=== PATIENT | female | born 1980 | race Caucasian/White ===

== ENCOUNTER 2018-12-06 20:40 | Emergency (ER) | payer SELFPAY ==
[~2018-12-06] VITALS: Ht 152.4 cm; Wt 160.0 kg
[2018-12-06] MEDS ORDERED: SOD CHLORIDE 0.9% 1,000 ML IV STA (20:41)
[2018-12-06 20:43] VITALS: Ht 152.4 cm; Wt 160.0 kg
--- NOTE | 2018-12-06 21:09 | ERD ---
ER Documentation Chief Complaint Chief Complaint SVT with dizziness HPI 38-year-old female with prior history of SVT status post the use of adenosine who presents to the emergency room for SVT. The patient states that just prior to arrival she started to feel her heart racing went to a local [employer]. The patient was noted to have a heart rate in the 200 and was given adenosine 6 mg IV with conversion to sinus rhythm. Patient states that she did have palpitations, chest discomfort and dizziness with the symptoms but symptoms are abated status post conversion. She denies any drugs or alcohol, no falls or injuries, no exertional chest pain or pleuritic pain. ROS All systems reviewed and are negative except as per history of present illness. Allergies Allergies: Coded Allergies: No Known Allergy (Unverified , 12/06/18) PMhx/Soc Medical and Surgical Hx: pt denies Medical Hx, pt denies Surgical Hx Hx Alcohol Use: No Hx Substance Use: No Hx Tobacco Use: No Smoking Status: Never smoker FmHx Family History: No diabetes Physical Exam Vitals Vital Signs Date Temp Pulse Resp B/P (MAP) Pulse Ox O2 O2 Flow FiO2 Time Delivery Rate 12/06/18 121 20 159/105 97 Room Air 20:49 (123) 12/06/18 99.6 117 18 144/110 98 20:43 (121) Physical Exam General: Well developed, well nourished, no acute distress Head: Normocephalic, atraumatic. Eyes: Pupils equally reactive, EOM intact ENT: Moist mucous membranes Neck: Supple, no lymphadenopathy Respiratory: Lungs clear bilaterally, no distress Cardiovascular: Slight tachycardia, no murmurs, rubs, or gallops Abdominal: Soft, non-tender, non-distended, no peritoneal signs : Deferred MSK: No edema, no unilateral swelling, 5/5 strength Neurologic: Alert and oriented, moving all extremities, normal speech, no focal weakness, no cerebellar signs Skin: No rash Psych: Normal mood Result Diagram: [id number]/06/18204212/06/182042 Results 24 hrs Laboratory Tests Test 12/06/18 20:43 12/06/18 21:18 White Blood Count 5.5 10^3/ul Red Blood Count 4.17 10^6/ul Hemoglobin 11.2 g/dl Hematocrit 34.6 % Mean Corpuscular Volume 83.0 fl Mean Corpuscular Hemoglobin 26.9 pg Mean Corpuscular Hemoglobin Concent 32.4 g/dl Red Cell Distribution Width 14.2 % Platelet Count 293 10^3/UL Mean Platelet Volume 9.8 fl Immature Granulocytes % 0.400 % Neutrophils % 47.3 % Lymphocytes % 42.0 % Monocytes % 7.7 % Eosinophils % 2.0 % Basophils % 0.6 % Nucleated Red Blood Cells % 0.0 /100WBC Immature Granulocytes # 0.020 10^3/ul Neutrophils # 2.6 10^3/ul Lymphocytes # 2.3 10^3/ul Monocytes # 0.4 10^3/ul Eosinophils # 0.1 10^3/ul Basophils # 0.0 10^3/ul Nucleated Red Blood Cells # 0.0 10^3/ul Sodium Level 140 mmol/L Potassium Level 3.4 mmol/L Chloride Level 106 mmol/L Carbon Dioxide Level 22 mmol/L Anion Gap 12 Blood Urea Nitrogen 11 mg/dl Creatinine 0.64 mg/dl Est Glomerular Filtrat Rate mL/min > 60 mL/min Glucose Level 174 mg/dl Calcium Level 8.8 mg/dl Magnesium Level 1.8 mg/dl Troponin I 0.032 ng/ml POC Beta HCG, Qualitative NEGATIVE Current Medications Medications Dose Sig/Chelsy Start Time Status Last (Trade) Ordered Route PRN Stop Time Admin Dose Reason Admin Sodium 1,000 ml @ Q1H STAT 12/06/18 DC 12/06/18 Chloride 1,000 mls/hr IV 20:41 20:59 12/06/18 21:40 Lorazepam 1 mg ONCE ONCE 12/06/18 DC 12/06/18 (Ativan) IV 22:00 22:03 12/06/18 22:01 1,000 mg ONCE STAT 12/06/18 DC 12/06/18 Acetaminophen PO 21:54 22:01 (Tylenol 12/06/18 21:55 Tab) Procedures/MDM EKG, MONITORS, & DIAGNOSTIC IMAGING: Rhythm strip: From EMS Rate/Rhythm: Narrow complex regular tachycardia without P waves consistent with SVT Impression: SVT EKG: I reviewed and interpreted a 12-lead EKG. Rhythm: Sinus tachycardia, normal QRS and QTc ST Changes: No contiguous ST segment elevations T waves: No contiguous T wave inversions Impression: [No evidence of acute cardiac ischemia] LAB INTERPRETATION: I reviewed the laboratory testing and it shows [no evidence of acute process] MEDICAL DECISION MAKING: The patient has recurrent episode of SVT. The patient did have some mild symptoms with it but unlikely secondary to cardiac ischemia. The patient is young healthy and not using drugs. Patient has not followed up with a c ardiologist for this and likely requires given now 2-3 episodes of SVT. Initiation of beta-galdino might be reasonable though cardiology consultation would be appropriate and necessary. The patient has had conversion status post 6 of adenosine. She is resting comfortably. Patient will benefit from basic blood work, troponin, EKG and IV fluids. ER COURSE: * IV fluids provided * The patient had some slight tachycardia and hypertension possibly secondary to anxieties, stress response that started to improve with anxiolysis. The patient's heart rate is now around 110. Blood pressure improving. * At this point I feel she can be safely discharged home with outpatient follow- up. Given lack of cardiology follow-up I will hesitated hold on initiation of beta-galdino therapy. Patient is to follow-up with primary care physician for referral. Return precautions were discussed and understood. CONSULTATION: [None] DISPOSITION PLAN: The patient does not have an identifiable emergent medical condition that warrants inpatient hospitalization at this time. The patient is deemed safe for discharge with outpatient follow-up. We discussed follow up with the patient's primary care doctor within 24 to 48 hours as needed. We also discussed return to the emergency room for worsening symptoms or worsening condition. Outpatient referral: Cardiology Discharge Medications: None required Departure Diagnosis: Primary Impression: SVT (supraventricular tachycardia) Condition: Stable RENALDO PETERSON MD Dec 06, 2018 21:09
[2018-12-06] MEDS ORDERED: ACETAMINOPHEN 500 MG TAB PO STA (21:54)
[2018-12-06] MEDS ORDERED: LORAZEPAM 2 MG INJ IV ONE (22:00)
[2018-12-06 23:15] VITALS: BP 125/88; PULSE 107; RESP 18
== END 2018-12-06 23:33 | disposition home or self-care (01) ==
LOC: E/R 20:40
DX: R00.0 Tachycardia, unspecified (principal)
CPT/HCPCS: 36415; 80048; 81025; 83735; 84484; 85025; 93005; 96361; 96374; 99284; J2060; J7030